=== PATIENT | female | born 1985 | race Caucasian/White ===

== ENCOUNTER 2016-06-09 16:22 | Emergency (ER) | payer OTHER ==
[2016-06-09] MEDS ORDERED: KETOROLAC 60 MG/2 ML VIAL IM ONE (19:31)
== END 2016-06-09 20:03 | disposition home or self-care (01) ==
LOC: ER 16:22
DX: M54.2 Cervicalgia (principal); M43.6 Torticollis; F17.210 Nicotine dependence, cigarettes, uncomplicated
CPT/HCPCS: 96372